=== PATIENT | female | born 1970 | race Hispanic/Latino ===

== ENCOUNTER → 2016-08-10 | Outpatient (CLI) | payer BC ==
[~2016-08-10] MED LIST: HYOS0.1283 SL; ONDA4TAB11 PO
--- NOTE | 2016-08-10 14:05 | Diagnostic Imaging Report ---
PROCEDURE: CT chest without contrast. TECHNIQUE: Multiple contiguous axial images were obtained through the chest without the use of intravenous contrast. INDICATION: Followup of right middle lobe nodule. Comparison with 08/04/2015. FINDINGS: There is a 4-mm noncalcified nodule in the right middle lobe anteriorly which is unchanged. There is also a 2-mm nodule just lateral to this also unchanged. No new nodules have developed. The lungs are well aerated. There are no infiltrates. No mediastinal or hilar adenopathy of pathologic size. No pleural effusions or pericardial effusion. IMPRESSION: Stable CT scan of the chest with 4-mm and 2-mm nodule again noted in the right middle lobe unchanged. Dictated by: Dictated on workstation # [id number]
== END ==
LOC: RAD 13:19
PROVIDERS: ATTEND Family Medicine
DX: R91.1 Solitary pulmonary nodule (principal)
CPT/HCPCS: 71250

== ENCOUNTER → 2017-08-16 | Outpatient (CLI) | payer BC, OTHER ==
--- NOTE | 2017-08-16 12:57 | Diagnostic Imaging Report ---
PROCEDURE: CT chest without contrast. TECHNIQUE: Multiple contiguous axial images were obtained through the chest without the use of intravenous contrast. INDICATION: Lung nodules, followup. COMPARISON: Made with prior CT chest from 08/10/2016. FINDINGS: No axillary lymphadenopathy is detected. Mediastinal and hilar evaluation is limited without intravenous contrast but no significant abnormality is seen. No pericardial or pleural fluid is identified. The central airways are patent. Tiny nodules in the right middle lobe appear stable when compared with prior studies dating back to 08/04/2015. The more medial nodule is a 4 mm, image 35. The more lateral nodule is 2 mm, image 36. No new or enlarging parenchymal nodules are seen. The upper abdomen is unremarkable. IMPRESSION: Stable right middle lobe noncalcified pulmonary nodules. These now show 2 years of stability. No further followup is indicated. Dictated by: Dictated on workstation # [id number]
== END ==
LOC: RAD 12:33
PROVIDERS: ATTEND Family Medicine
DX: R91.8 Other nonspecific abnormal finding of lung field (principal)
CPT/HCPCS: 71250